=== PATIENT | female | born 1945 | race Caucasian/White ===

== ENCOUNTER 2016-06-21 22:57 | Observation (INO) | payer OTHER, MEDICARE ==
[~2016-06-21] VITALS: Ht 161.3 cm; Wt 84.9 kg
[~2016-06-21 22:57] MED LIST: ACT15 PO; ALBUAER INH; ARM1 PO; Aspirin PO; Enalapril PO; IRON1CAP; Januvia PO; MONT1TAB3 PO; Multivitamin PO; Omega-3 PO; PLQ200 PEG; Pravastatin PO; Prednisone PO; SALI1SPR3; Tylenol Arthritis
--- NOTE | 2016-06-21 23:48 | EMERGENCY ROOM VISIT NOTE ---
History Report prepared by López: Arnel Matta Under the Supervision of: Dr. Jael Gagnon M.D. First contact with patient: 23:20 Chief Complaint: SHORTNESS OF BREATH Stated Complaint: POSSIBLE BLOOD CLOT IN LUNG Nursing Triage Summary: Today pt had sharp pain in left scapula and left arm. Pain worse with deep breath. Went to ER in [place]. Concerned of blood clot. Unable to do CT scan due to poor kidney function. Pt also complaining of pain in "right carotid". Sent here for admission with Dr. Caballero. unable to do direct admit. hx of asthma, DM2 History of Present Illness The patient is a 70 year old female who presents to the Emergency Room with complaints of persistent shortness of breath that began a couple days prior to arrival. The patient states that her shortness of breath would commonly resolve with rest. Today the patient's symptoms would not subside. She is also complaining of pain in her scapula that was radiating down her left arm. She is still experiencing intermittent "twinge" of pain in the left side of neck. She developed a cough yesterday. The patient initially went to the [place] emergency department and attempts at transfer were made to Dr Caballero's service. Ambulance transfer was causing significant delay and pt decided to sign out AMA from [facility] and drive to [facility] for inpt evaluation/ VQ study. 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 Review of Systems See HPI for pertinent positives & negatives. A total of 10 systems reviewed and were otherwise negative. Past Medical & Surgical Medical Problems: (1) Shortness of breath Surgical Problems: (1) H/O: hysterectomy Family History Cancer Diabetes mellitus Heart disease Hypertension Social History Smoking Status: Never Smoker Drug Use: none Marital Status: Housing Status: lives with significant other Current/Historical Medications Scheduled Aspirin (Aspirin), 325 MG PO HS Enalapril Maleate (Vasotec), 10 MG PO DAILY Fish Oil ([place]-3), 2,000 MG PO BID Montelukast Sodium (Singulair), 10 MG PO HS Multivitamin (Multivitamin), 1 TAB PO DAILY Pioglitazone (Actos), 15 MG PO DAILY Polysaccharide Iron Complex (Nu-Iron 150), 150 MG PO 5XWK Pravastatin Sodium (Pravastatin Sodium), 40 MG PO HS Prednisone (Prednisone), 4 MG PO DAILY Sitagliptin (Januvia), 50 MG PO DAILY Scheduled PRN Albuterol Hfa (Ventolin Hfa), 2 PUFFS INH Q6H PRN for SOB/Wheezing Allergies Coded Allergies: Ampicillin (Verified Allergy, Unknown, RASH, 06/22/16) Cefaclor (Verified Allergy, Unknown, Rash, 06/22/16) Clindamycin (Verified Allergy, Unknown, RASH, SWELLING, 06/22/16) Diclofenac (Verified Allergy, Unknown, Swelling-face,SOB, Palpitations, flushing, 06/22/16) Penicillin V (Verified Allergy, Unknown, RASH, 06/22/16) Sulfa Antibiotics (Verified Allergy, Unknown, "SUFLA" = RASH, 06/22/16) Codeine (Verified Adverse Reaction, Unknown, palpitations, SWANSON, Flushing, ) Cortisone (Verified Adverse Reaction, Unknown, Palpitations, 06/22/16) Erythromycin (Verified Adverse Reaction, Unknown, N/V, 06/22/16) Ezetimibe (Verified Adverse Reaction, Unknown, SWANSON,Stomach problems, feels weird, 06/22/16) Indomethacin (Verified Adverse Reaction, Unknown, N/V, 06/22/16) Naproxen (Verified Adverse Reaction, Unknown, N/V, 06/22/16) Pitavastatin (Verified Adverse Reaction, Unknown, White mouth, loss of taste, 06/22/16) Simvastatin (Verified Adverse Reaction, Unknown, Joint Pain,hard to ambulate, N/V,dizziness, 06/22/16) Uncoded Allergies: DECONGESTANTS (Allergy, Mild, Palpitations, 03/26/15) Physical Exam Vital Signs Date Time Temp Pulse Resp B/P Pulse Ox O2 Delivery O2 Flow Rate FiO2 06/22/16 01:04 172/73 06/22/16 00:06 81 20 98 Room Air 06/22/16 00:01 141/87 06/21/16 23:57 75 17 98 Room Air 06/21/16 23:35 99 Room Air 06/21/16 23:35 98 06/21/16 23:31 99 Room Air 06/21/16 23:31 124/78 06/21/16 23:07 36.8 95 20 143/49 100 Room Air Physical Exam Vital signs reviewed. General: Chronically ill appearing, in no significant distress. HEENT: No scleral icterus, PERRLA, neck supple. Atraumatic. Cardiovascular: Regular rate and rhythm, no extra sounds. Pulmonary: Clear to auscultation bilaterally, normal work of breathing. Abdomen: Obese, Soft, nontender, nondistended, positive bowel sounds. Extremities: Minimal peripheral edema bilaterally. No rash. Atraumatic. Musculoskeletal: Atraumatic, no peripheral edema. Neurologic: Patient awake alert and oriented x 3, full strength in all 4 extremities. Cranial nerves 2 through 12 grossly intact. Skin: Warm, dry, no rash Medical Decision & Procedures ER Provider Diagnostic Interpretation: X-ray results as stated below per my interpretation and radiologist interpretation. Other radiology results as stated below per my review and radiologist interpretation: US VENOUS BILATERAL LOWER EXTREMITIES: No evidence of deep venous thrombosis. Radiologist: Nona Swan M.D. CHEST X-RAY: Chest x-ray from outside facility reveals minimal inspiratory effort with clear costovertebral angles, no pleural effusion. No consolidation, no failure. Laboratory Results Laboratory results per my review. Medications Administered Medications (Trade) Dose Ordered Sig/Kandi Route Start Time Stop Time Status Last Admin Dose Admin Sodium Chloride (Nss 1000ml) 1,000 ml @ 125 mls/hr Q8H STAT IV 06/22/16 00:32 06/22/16 02:25 DC 06/22/16 01:04 125 MLS/HR ECG Indication: SOB/dyspnea Rate (beats per minute): 85 Rhythm: sinus rhythm Findings: PVC (Frequent), no acute ischemic change, other (Low voltage) ED Course 2338: Past medical records reviewed. The patient was evaluated in room B12. A complete history and physical examination was performed. 0032: Ordered Sodium Chloride 1000 mL @ 125 mL/hr IV. 0112: I discussed the case with Dr. Ada Hudson [facility] Hospitalist, he will evaluate the patient for further treatment. Medical Decision Differential diagnosis: Etiologies such as infections, reactive airway disease, pneumonia, pneumothorax , COPD, CHF, cardiac ischemia, pulmonary embolism, musculoskeletal, gastrointestinal, as well as others were entertained. This pt was evaluated and appeared to be anxious but in no distress. IV access was obtained and lab work was drawn. VSS. EKG reviewed and is nonischemic. Records from OSH were reviewed. Pt creatinine is 2.2. Ddimer is elevated, cardiac enzymes are normal. LE dopplers are negative for DVT. Pt was d/w Dr Caballero who has agreed to evaluate pt for further management. Consults Time Called: 011 Consulting Physician: Dr. Ada HANCOCK Hospitalist Returned Call: 011 I discussed the case with Dr. Ada HANCOCK Hospitalist, he will evaluate the patient for further treatment. Impression Primary Impression: Shortness of breath Additional Impressions: Elevated d-dimer Chronic renal failure Scribe Attestation The scribe's documentation has been prepared under my direction and personally reviewed by me in its entirety. I confirm that the note above accurately reflects all work, treatment, procedures, and medical decision making performed by me. Departure Information Dispostion Being Evaluated By Hospitalist Referrals Matt Sanchez D.O. (PCP) Patient Instructions My [facility] Problem Qualifiers Additional Impressions: Chronic renal failure Chronic kidney disease stage: unspecified stage Qualified Codes: N18.9 - Chronic kidney disease, unspecified
[2016-06-22] VITALS (10 sets, daily range): BP systolic 124–168; BP diastolic 57–85; PULSE 88–106; TEMP 36.5–36.8; O2SAT 94–97; Ht 161.3 cm; Wt 84.9 kg
[2016-06-22 00:24] LABS: BLOOD UREA NITROGEN 41 mg/dl (7-18); BUN/CREATININE RATIO 18.8 (10-20); CALCIUM 9.5 mg/dl (8.5-10.1); CARBON DIOXIDE 26 mmol/L (21-32); CHLORIDE 110 mmol/L (98-107); GLUCOSE 118 mg/dl (70-99); SODIUM 145 mmol/L (136-145)
[2016-06-22] MEDS ORDERED: SODIUM CHLORIDE 0.9% 1000ML 1,000 ML IV STA (00:32)
[2016-06-22] MEDS ORDERED: ENAL10TA PO (00:36)
[2016-06-22] MEDS ORDERED: ASPI325T45 PO (00:36)
[2016-06-22] MEDS ORDERED: PRAV40TA2 PO (00:36)
[2016-06-22] MEDS ORDERED: PRD/1 PO (00:38)
[2016-06-22] MEDS ORDERED: MULT-506 PO (00:38)
[2016-06-22] MEDS ORDERED: OMEG10007 PO (00:38)
[2016-06-22] MEDS ORDERED: SITA50TA3 PO (00:38)
[2016-06-22] MEDS ORDERED: POLY150C PO (00:40)
[2016-06-22] MEDS ORDERED: VNTHFA/IN INH (00:41)
[2016-06-22] MEDS ORDERED: ALBUTEROL HFA 8 GM INHALER INH PRN (01:30)
[2016-06-22] MEDS ORDERED: ONDANSETRON INJ 2 MG/ML 2 ML VIAL IV PRN (01:30)
[2016-06-22] MEDS ORDERED: ZOLPIDEM TARTRATE 5 MG TAB PO PRN (01:30)
[2016-06-22] MEDS ORDERED: ACETAMINOPHEN 325 MG TAB PO PRN (01:30)
[2016-06-22] MEDS ORDERED: POLYETHYLENE (MIRALAX) 17 GM PACK PO PRN (01:30)
[2016-06-22] MEDS ORDERED: MAGNESIUM HYDROXIDE SUSP 30 ML UDC PO PRN (01:30)
[2016-06-22] MEDS ORDERED: NITROGLYCERIN 0.4 MG SL PER TAB CHARGE SL PRN (01:30)
[2016-06-22] MEDS ORDERED: ALUMINUM/MAGNESIUM/SIMETH (MAALOX MAX) 30 ML UDC PO PRN (01:30)
[2016-06-22] MEDS ORDERED: LORAZEPAM 1 MG TAB PO STA (01:31)
--- NOTE | 2016-06-22 01:31 | History and Physical ---
History & Physical Date & Time of Service: Jun 22, 2016 at 01:28 Chief Complaint: Possible Blood Clot In Lung Primary Care Physician: Matt Sanchez D.O. History of Present Illness Source: patient, spouse This is a 70 yo F with PMR, Anxiety, Asthma & T2DM who presents with shortness of breath over the last 1 month, which has worsened over the last two days. She reports it started a month ago after she had a cold, and she saw her PCP who prescribed a Breo inhaler which helped her symptoms intermittently. She noticed she was getting more short of breath going up the stairs, then got an Albuterol inhaler with also somewhat helped. Over the last two days, she has noticed she is short of breath at rest or when speaking. At 3pm yesterday (06/21/16) she noticed she had pain in her right scapula, which then moved to her left anterior chest and down her left arm. She reported this was associated with shortness of breath and went away on its own. She thought she was having an ID and went to [facility]. In [place], she had a negative troponin but a D- Dimer of 800. They do not have capabilities to do a V/Q scan, so she was going to be transferred here, but no ambulances were available, so her drove her here herself. She currently feels very anxious about her situation and is concerned she may have a blood clot in her lungs. Past Medical/Surgical History PMHx/PSHx: Elevated Creatinine (baseline around 2.0, has had an elevation for 5 years) Polymyalgia Rheumatica Type 2 DM Lumbar disc herniation with surgery Anxiety HTN Family History No pertinent FHx Social History Smoking Status: Never Smoker Marital Status: Housing status: lives with family Immunizations History of Influenza Vaccine: Yes Influenza Vaccine Date: Jan 10, 2015 History of Tetanus Vaccine?: Unknown History of Pneumococcal: Unknown History of Hepatitis B Vaccine: Unknown Allergies Coded Allergies: Ampicillin (Verified Allergy, Unknown, RASH, 06/22/16) Cefaclor (Verified Allergy, Unknown, Rash, 06/22/16) Clindamycin (Verified Allergy, Unknown, RASH, SWELLING, 06/22/16) Diclofenac (Verified Allergy, Unknown, Swelling-face,SOB, Palpitations, flushing, 06/22/16) Penicillin V (Verified Allergy, Unknown, RASH, 06/22/16) Sulfa Antibiotics (Verified Allergy, Unknown, "SUFLA" = RASH, 06/22/16) Codeine (Verified Adverse Reaction, Unknown, palpitations, SWANSON, Flushing, ) Cortisone (Verified Adverse Reaction, Unknown, Palpitations, 06/22/16) Erythromycin (Verified Adverse Reaction, Unknown, N/V, 06/22/16) Ezetimibe (Verified Adverse Reaction, Unknown, SWANSON,Stomach problems, feels weird, 06/22/16) Indomethacin (Verified Adverse Reaction, Unknown, N/V, 06/22/16) Naproxen (Verified Adverse Reaction, Unknown, N/V, 06/22/16) Pitavastatin (Verified Adverse Reaction, Unknown, White mouth, loss of taste, 06/22/16) Simvastatin (Verified Adverse Reaction, Unknown, Joint Pain,hard to ambulate, N/V,dizziness, 06/22/16) Uncoded Allergies: DECONGESTANTS (Allergy, Mild, Palpitations, 03/26/15) Home Medications Scheduled Aspirin (Aspirin), 325 MG PO HS Enalapril Maleate (Vasotec), 10 MG PO DAILY Fish Oil ([place]-3), 2,000 MG PO BID Montelukast Sodium (Singulair), 10 MG PO HS Multivitamin (Multivitamin), 1 TAB PO DAILY Pioglitazone (Actos), 15 MG PO DAILY Polysaccharide Iron Complex (Nu-Iron 150), 150 MG PO 5XWK Pravastatin Sodium (Pravastatin Sodium), 40 MG PO HS Prednisone (Prednisone), 4 MG PO DAILY Sitagliptin (Januvia), 50 MG PO DAILY Scheduled PRN Albuterol Hfa (Ventolin Hfa), 2 PUFFS INH Q6H PRN for SOB/Wheezing Review of Systems See HPI for pertinent positives & negatives. A total of 10 systems reviewed and were otherwise negative. Physical Exam Vital Signs Date Time Temp Pulse Resp B/P Pulse Ox O2 Delivery O2 Flow Rate FiO2 06/22/16 01:04 172/73 06/22/16 00:06 81 20 98 Room Air 06/22/16 00:01 141/87 06/21/16 23:57 75 17 98 Room Air 06/21/16 23:35 99 Room Air 06/21/16 23:35 98 06/21/16 23:31 99 Room Air 06/21/16 23:31 124/78 06/21/16 23:07 36.8 95 20 143/49 100 Room Air General Appearance: WD/WN, + pertinent finding (anxious) Head: normocephalic, atraumatic Eyes: normal inspection ENT: hearing grossly normal Neck: supple, no JVD Respiratory/Chest: lungs clear, normal breath sounds, no respiratory distress Cardiovascular: normal peripheral pulses, + tachycardia, + systolic murmur Abdomen/GI: normal bowel sounds, non tender, soft Back: no CVA tenderness, no muscle spasm, normal range of motion Extremities/Musculoskelatal: no calf tenderness, no pedal edema Neurologic/Psych: alert, normal reflexes, + pertinent finding (anxious affect) Skin: no rash Diagnostics Laboratory Results Results Past 24 Hours Test 06/21/16 23:45 Range/Units Sodium Level 145 136-145 mmol/L Potassium Level 3.5-5.1 mmol/L Chloride Level 110 98-107 mmol/L Carbon Dioxide Level 26 21-32 mmol/L Anion Gap 9.0 3-11 mmol/L Blood Urea Nitrogen 41 7-18 mg/dl Creatinine 2.20 0.60-1.20 mg/dl Est Creatinine Clear Calc Drug Dose 24.9 ml/min Estimated GFR () 25.8 Estimated GFR (Non- 22.3 BUN/Creatinine Ratio 18.8 10-20 Random Glucose 118 70-99 mg/dl Calcium Level 9.5 8.5-10.1 mg/dl Troponin I < 0.015 0-0.045 ng/ml Diagnostic Radiology Venous doppler: Pending EKG 85bpm Sinus rhythm with frequent Premature ventricular complexes Low voltage QRS Borderline ECG No previous ECGs available Impression Assessment and Plan 70 yo overweight female who presents with shortness of breath at rest with brief episode of chest pain earlier today. Shortness of breath - differential: PE, asthma exacerbation, anxiety, pneumonia , aortic dissection - V/Q Scan - Continuous pulse ox (has been 96%+ since being in ED) Chest pain - Trend cardiac enzymes - EKG in AM - Telemetry monitoring Elevated Creatinine, baseline 2.0-2.2 - Continue to monitor - Obtain old records from [facility] Polymyalgia Rheumatica - Continue prednisone 4mg daily Anxiety - 1mg Ativan now, then continue to monitor Hypertension - BP on arrival was around 120/80, then has steadily risen since being in ED. May be due to anxiety but continue to monitor. Resident Physician Supervision Note: Pt seen/examined independently. I discussed the case with the resident and agree with the findings and plan as documented in the note. Any exceptions or clarifications are listed here: Initially accepted from [place] as direct - transport was unavailable so that pt was brought to our ER by . Transfer was to take place as there is suspicion of PE and no VQ capability at [place] - CTA cannot be done due to renal function CC is SOB On monitor in ER occasional PVCs seen & pt is intermittently hypertensive and anxious - states he SOB is most pronounced w/exertion - she had some L sided pleauritic CP earlier in day which resolved D dimer is elevated however this is in the context of CKD O/E AAO x 3 CTAB S1,2 R NT,NT P: R/O PE - AM VQ Would proceed to noncontrast CT if negative to further evaluate her SOB Renal function is stable Documented By: Maulik Caballero Level of Care Telemetry Resuscitation Status FULL RESUSCITATION VTE Prophylaxis VTE Risk Assessment Done? Y/N: Yes Risk Level: Moderate Given or contraindicated: Unfractionated heparin SQ Resident Tracking Resident Involvement: Resident Care Provided Care Provided: Adult Hospital Medicine
[2016-06-22] MEDS ORDERED: IV FLUIDS COMPLETED PRN (01:45)
[2016-06-22] MEDS: NITROGLYCERIN OINT 2% 1GM PACKET EXT SCH ×5 (03:23→20:01)
[2016-06-22 06:10] LABS: BASO % 1.4 %; COMPLETE YES; EOS % 2.3 %; IG% 0.5 %; LYMPH % 28.9 %; LYMPH ABS # 2.14 K/uL (1.2-3.4); MEAN CELL VOLUME 95.5 fL (80-100); MEAN CORPUSCULAR HEMOGLOBIN 31.6 pg (25-34); MEAN CORPUSCULAR HGB CONC 33.1 g/dl (32-36); MEAN PLATELET VOLUME 10.3 fL (7.4-10.4); MONO % 9.1 %; NEUT % 57.8 %; PLATELET COUNT 242 K/uL (130-400); RED BLOOD COUNT 3.35 M/uL (4.2-5.4)
[2016-06-22 06:29] LABS: PARTIAL THROMBOPLASTIN RATIO 1.1; PROTHROMBIN TIME (PATIENT) 10.8 SECONDS (9.0-12.0)
--- NOTE | 2016-06-22 06:29 | DIAGNOSTIC IMAGING REPORT ---
BILATERAL LOWER EXTREMITY VENOUS DOPPLER HISTORY: Pain. Edema. DVT, elevated ddi wanda COMPARISON STUDY: None. FINDINGS: There is normal compressibility, flow, and augmentation within the bilateral lower extremity deep venous systems. IMPRESSION: No DVT within the right or left lower extremity. Electronically signed by: Mendez Reed M.D. 06/22/2016 6:28 AM Dictated Date/Time: 06/22/2016 6:27 AM
[2016-06-22 06:46] LABS: ALB/GLOB RATIO 0.9 (0.9-2); ALT/SGPT 27 U/L (12-78); AST/SGOT 19 U/L (15-37); BLOOD UREA NITROGEN 39 mg/dl (7-18); BUN/CREATININE RATIO 19.7 (10-20); CARBON DIOXIDE 25 mmol/L (21-32); CHLORIDE 110 mmol/L (98-107); GLUCOSE 100 mg/dl (70-99); POTASSIUM 4.5 mmol/L (3.5-5.1); SODIUM 144 mmol/L (136-145)
[2016-06-22 06:51] LABS: ALKALINE PHOSPHATASE 45 U/L (45-117); CKMB/CK RATIO 0.8 (0-3.0)
--- NOTE | 2016-06-22 08:16 | Family Medicine Progress Note ---
Progress Note Date of Service Jun 22, 2016. Subjective Pt evaluation today including: conversation w/ patient, conversation w/ family , physical exam, chart review, lab review, review of studies, review of inpatient medication list Pain: denies pain PO Intake: NPO Voiding: no voiding problems Patient report resolution of SOB at rest. Rt Scapular pain has resolved. Patient also reports "funny feeling in chest" that has coincided with onset of current symptoms . Discomfort worse with inspiration. +palpitation. Constitutional: No chills, No fever, No weakness Respiratory: + dyspnea on exertion, No cough, No shortness of breath, No wheezing Cardiovascular: No chest pain, No edema, No palpitations Abdomen: No constipation, No diarrhea, No nausea, No pain, No vomiting Female : No dysuria, No hematuria, No urinary frequency Neurologic: No numbness/tingling, No weakness Skin: No itch, No rash Medications Current Inpatient Medications Medications (Trade) Dose Ordered Sig/Kandi Route Start Time Stop Time Status Last Admin Dose Admin Heparin Sodium (Porcine) (Heparin Sq 5000 Unit/0.5ml) 5,000 unit Q12 SQ 06/22/16 09:00 07/22/16 08:59 Acetaminophen (Tylenol Tab) 650 mg Q4H PRN PO 06/22/16 01:30 07/22/16 01:29 Al Hydrox/Mg Hydrox/Simethicone (Maalox Max Susp) 15 ml Q4H PRN PO 06/22/16 01:30 07/22/16 01:29 Magnesium Hydroxide (Milk Of Magnesia Susp) 30 ml Q12H PRN PO 06/22/16 01:30 07/22/16 01:29 Zolpidem Tartrate (Ambien Tab) 5 mg HSZ PRN PO 06/22/16 01:30 07/22/16 01:29 Ondansetron HCl (Zofran Inj) 4 mg Q6H PRN IV 06/22/16 01:30 07/22/16 01:29 Nitroglycerin (Nitrostat Tab) 0.4 mg UD PRN SL 06/22/16 01:30 07/22/16 01:29 Nitroglycerin (Nitroglycerin 2% Oint) 1 inch Q6H EXT 06/22/16 03:00 07/22/16 01:29 06/22/16 04:00 1 INCH Polyethylene (Miralax Powder Packet) 17 gm DAILY PRN PO 06/22/16 01:30 07/22/16 01:29 Albuterol (Ventolin Hfa Inhaler) 2 puffs Q6H PRN INH 06/22/16 01:30 07/22/16 01:29 Aspirin (Ecotrin Tab) 325 mg HS PO 06/22/16 21:00 07/22/16 20:59 Enalapril Maleate (Vasotec Tab) 10 mg DAILY PO 06/22/16 09:00 07/22/16 08:59 Fish Oil ([place]-3 (Purified Fish Oil) Cap) 2 gm BID PO 06/22/16 09:00 07/22/16 08:59 Montelukast Sodium (Singulair Tab) 10 mg HS PO 06/22/16 21:00 07/22/16 20:59 Multivitamins (Multivitamin Tab) 1 tab DAILY PO 06/22/16 09:00 07/22/16 08:59 Pioglitazone HCl (ACTos TAB) 15 mg DAILY PO 06/22/16 09:00 07/22/16 08:59 Pravastatin Sodium (Pravachol Tab) 40 mg HS PO 06/22/16 21:00 07/22/16 20:59 Prednisone (PredniSONE TAB) 4 mg DAILY PO 06/22/16 09:00 07/22/16 08:59 Sitagliptin Phosphate (Januvia Tab) 50 mg DAILY PO 06/22/16 09:00 07/22/16 08:59 Miscellaneous (Iv Fluids Completed) 1 ea PRN PRN N/A 06/22/16 01:45 06/22/17 01:44 Objective Vital Signs Date Time Temp Pulse Resp B/P Pulse Ox O2 Delivery O2 Flow Rate FiO2 06/22/16 12:55 36.6 97 18 142/85 96 Room Air 06/22/16 12:00 97 Room Air 06/22/16 08:00 96 Room Air 06/22/16 07:46 36.6 106 18 124/60 96 Room Air 06/22/16 04:18 36.8 88 96 133/57 96 Room Air 06/22/16 04:00 Room Air 06/22/16 02:13 36.5 98 20 168/84 97 Room Air 06/22/16 01:42 96 16 152/85 99 06/22/16 01:04 172/73 06/22/16 00:06 81 20 98 Room Air 06/22/16 00:01 141/87 06/21/16 23:57 75 17 98 Room Air 06/21/16 23:35 99 Room Air 06/21/16 23:35 98 06/21/16 23:31 99 Room Air 06/21/16 23:31 124/78 06/21/16 23:07 36.8 95 20 143/49 100 Room Air Physical Exam General Appearance: WD/WN, no apparent distress Eyes: PERRL, EOMI, sclerae normal Neck: supple, no carotid bruits, trachea midline Respiratory/Chest: lungs clear, normal breath sounds, no respiratory distress Cardiovascular: regular rate, rhythm, no edema, + systolic murmur (with radiation to carotids) Abdomen: normal bowel sounds, non tender, soft, no organomegaly Extremities: no pedal edema, no calf tenderness Skin: normal color, warm/dry, no rash Laboratory Results Results Past 24 Hours Test 06/21/16 23:45 06/22/16 05:58 06/22/16 11:50 06/22/16 12:28 Range/Units Sodium Level 145 144 136-145 mmol/L Potassium Level 4.5 3.5-5.1 mmol/L Chloride Level 110 110 98-107 mmol/L Carbon Dioxide Level 26 25 21-32 mmol/L Anion Gap 9.0 9.0 3-11 mmol/L Blood Urea Nitrogen 41 39 7-18 mg/dl Creatinine 2.20 2.00 0.60-1.20 mg/dl Est Creatinine Clear Calc Drug Dose 24.9 27.8 ml/min Estimated GFR () 25.8 29.0 Estimated GFR (Non- 22.3 25.0 BUN/Creatinine Ratio 18.8 19.7 10-20 Random Glucose 118 100 70-99 mg/dl Calcium Level 9.5 9.0 8.5-10.1 mg/dl Troponin I < 0.015 < 0.015 < 0.015 0-0.045 ng/ml White Blood Count 7.40 4.8-10.8 K/uL Red Blood Count 3.35 4.2-5.4 M/uL Hemoglobin 10.6 12.0-16.0 g/dL Hematocrit 32.0 37-47 % Mean Corpuscular Volume 95.5 80-100 fL Mean Corpuscular Hemoglobin 31.6 25-34 pg Mean Corpuscular Hemoglobin Concent 33.1 32-36 g/dl Platelet Count 242 130-400 K/uL Mean Platelet Volume 10.3 7.4-10.4 fL Neutrophils (%) (Auto) 57.8 % Lymphocytes (%) (Auto) 28.9 % Monocytes (%) (Auto) 9.1 % Eosinophils (%) (Auto) 2.3 % Basophils (%) (Auto) 1.4 % Neutrophils # (Auto) 4.28 1.4-6.5 K/uL Lymphocytes # (Auto) 2.14 1.2-3.4 K/uL Monocytes # (Auto) 0.67 0.11-0.59 K/uL Eosinophils # (Auto) 0.17 0-0.5 K/uL Basophils # (Auto) 0.10 0-0.2 K/uL RDW Standard Deviation 46.2 36.4-46.3 fL RDW Coefficient of Variation 13.3 11.5-14.5 % Immature Granulocyte % (Auto) 0.5 % Immature Granulocyte # (Auto) 0.04 0.00-0.02 K/uL Prothrombin Time 10.8 9.0-12.0 SECONDS Prothromb Time International Ratio 1.0 0.9-1.1 Activated Partial Thromboplast Time 27.8 21.0-31.0 SECONDS Partial Thromboplastin Ratio 1.1 Total Bilirubin 0.3 0.2-1 mg/dl Aspartate Amino Transf (AST/SGOT) 19 15-37 U/L Alanine Aminotransferase (ALT/SGPT) 27 12-78 U/L Alkaline Phosphatase 45 45-117 U/L Total Creatine Kinase 76 71 26-192 U/L Creatine Kinase MB 0.6 0.6 0.5-3.6 ng/ml Creatine Kinase MB Ratio 0.8 0.8 0-3.0 Total Protein 6.5 6.4-8.2 gm/dl Albumin 3.0 3.4-5.0 gm/dl Globulin 3.5 2.5-4.0 gm/dl Albumin/Globulin Ratio 0.9 0.9-2 Hepatitis C Antibody Screen NEG NEG Bedside Glucose 113 70-90 mg/dl Test 06/22/16 16:19 Range/Units Bedside Glucose 118 70-90 mg/dl Assessment and Plan 70 yo F non-smoker with Hx of Anxiety, PMR on chronic prednisone, PMR, CKD, Asthma, T2DM p/w SOBx 1month with worsening with a few days with associated pleuritic Chest Discomfort, palpitation, with an elevated D-Dimer from another facility,found to have negative GRAEME LE doppller u/s for DVT , negative cardiac enzymes. SOB -improved, saturation 96% on rm air -Anxiety Vs. PE(Hx of thrombosis +D-Dimer, but negative doppler) vs. Pulmonary HTN (SOB x 1 month), vs. Valvular disease( +systolic murmur, but not new onset) -F/U VQ Scan results -Consider Echo if VQ Scan negative to r/o Pulmonary HTN, evaluate valvular fxn Acute on CKD -Baseline 1.8-1.9 per patient - 2.2 Cr on arrival -Cr improved to 2 s/p IL IV fluids -BUN/Cr ratio 19.7, -started additional bag of IV fluids -Reassess PRP in AM PMR -joint ache (Shoulders) at baseline - Continue Prednisone daily Systolic Murmur -known to patient -patient uncertain of diagnosis -F/u Echo HTN -controlled -Continue Enalapril DVT Prophylaxis -Heparin 5000 q12 Start Diet Discharge planning: home Resident Tracking Resident Involvement: Resident Care Provided Care Provided: Adult Hospital Medicine Reviewed: Pt Seen/Exam by Me History Pt still SOB with exertion. No chest pain. States that this has been ongoing since about a month ago when she had "that flu that went around". Has tried inhalers given her asthma hx and no improvement. Agree with HPI/ROS as noted. General Appearance: no apparent distress, obese Respiratory: normal breath sounds, no respiratory distress Cardiovascular: normal peripheral pulses, regular rate, rhythm Gastrointestinal: non tender, soft Extremities: non-tender, no pedal edema Neurologic/Psychiatric: alert, normal mood/affect Skin Characteristics: normal color, warm/dry Assessment/Plan Resident Physician Supervision Note: I discussed the case with the resident and agree with the findings and plan as documented in the note. Any exceptions or clarifications are listed here: Documented By: Yvonne Beckham SOB that has been worsening over the last month V/Q scan neg ECHO pending Continue to monitor
[2016-06-22] MEDS: PIOGLITAZONE TAB 15 MG TAB PO SCH (08:48)
[2016-06-22] MEDS: HEPARIN SOD 5000 UNIT/0.5 ML CARP SQ SCH ×2 (08:48→20:03)
[2016-06-22] MEDS: SITAGLIPTIN 25 MG TAB PO SCH (08:49)
[2016-06-22] MEDS: MULTIVITAMIN TAB PO SCH (08:49)
[2016-06-22] MEDS: OMEGA-3 (PURIFIED FISH OIL) 1 GM CAP PO SCH ×2 (08:50→19:59)
[2016-06-22] MEDS: ENALAPRIL MALEATE 10 MG TAB PO SCH (08:52)
--- NOTE | 2016-06-22 10:59 | DIAGNOSTIC IMAGING REPORT ---
NUCLEAR MEDICINE VENTILATION/PERFUSION SCAN CLINICAL HISTORY: Chest pain. Dyspnea. COMPARISON: None TECHNIQUE: For the ventilation portion of this exam, 32.0 mCi of DTPA was inhaled at 9:47 AM. Immediately following inhalation, imaging of the chest was carried out in the anterior, posterior, left lateral, right lateral, LPO, RPO, GERMAN and ESTRADA projections. For the perfusion portion of exam, 5.7 mCi of technetium 99m MAA was injected IV at 10:25 AM. Immediately following injection, imaging of the chest was carried out in the same projections. FINDINGS: Uniform activity characteristics throughout the right as well as left lungs. No significant ventilation/perfusion mismatch. No significant central air trapping IMPRESSION: Normal lung scan Electronically signed by: Mendez Reed M.D. 06/22/2016 10:58 AM Dictated Date/Time: 06/22/2016 10:56 AM
--- NOTE | 2016-06-22 11:00 | DIAGNOSTIC IMAGING REPORT ---
CHEST 2 VIEWS ROUTINE HISTORY: SHORTNESS OF BREATH, FOR V/Q SCAN COMPARISON: None. FINDINGS: Punctate calcified granuloma within the right lower lobe. The lungs are otherwise clear. The heart is normal in size. No pleural effusions. No pneumothorax. IMPRESSION: No acute process. Electronically signed by: Mustapha Sargent M.D. 06/22/2016 10:59 AM Dictated Date/Time: 06/22/2016 10:57 AM
[2016-06-22] MEDS: SODIUM CHLORIDE 0.9% 1000ML 1,000 ML IV SCH ×2 (11:02→17:36)
[2016-06-22 12:17] LABS: CKMB/CK RATIO 0.8 (0-3.0)
--- NOTE | 2016-06-22 14:47 | ECHOCARDIOGRAM REPORT ---
*NOTICE TO RECEIVING REPUBLICAN AGENCY This information is strictly Confidential and protected under [place] law. [place] law prohibits you from making any further disclosure of this information unless further disclosure is expressly permitted by the written consent of the person to whom it pertains or is authorized by law. A general authorization for the release of medical or other information is not sufficient for this purpose. Hospital accepts no responsibility if the information is made available to any other person, INCLUDING THE PATIENT. Interpretation Summary * Name: NOLVIA JOHNSON Study Date: 06/22/2016 12:22 PM BP: 124/60 mmHg * Patient Location: [facility]– [place][note 2] HR: 63 * : 1945 (M/d/yyyy) Gender: Female Height: 63.5 in * Age: 70 yrs Ethnicity: CA Weight: 183 lb * Performed By: Willow Bee RDCS * * Reason For Study: R/O PULM HTN * BSA: 1.9 m2 * History: R/O PULMONARY HTN * Normal biventriuclar systolic function. * Normal chamber dimensions. * No significant valvular abnormalities. * Top normal estimated right ventricular systolic pressure. * Normal estimated central venous pressure. * -- Conclusions -- * Aortic valve sclerosis mild, without significant aortic valvular stenosis. Procedure Details * A complete two-dimensional transthoracic echocardiogram was performed (2D, M-mode, Doppler and color flow Doppler). Left Ventricle * The left ventricle is normal in size. * There is normal left ventricular wall thickness. * Ejection Fraction = 55-60%. * The left ventricular wall motion is normal. Right Ventricle * The right ventricle is normal in size and function. Atria * The left atrial size is normal. * Right atrial size is normal. * No ASD detected; PFO is not assessed. Mitral Valve * The mitral valve is normal. * There is no mitral valve stenosis. * There is no mitral regurgitation noted. Tricuspid Valve * The tricuspid valve is not well visualized, but is grossly normal. * There is trace tricuspid regurgitation. * Right ventricular systolic pressure is normal. Aortic Valve * The aortic valve is trileaflet. * The aortic valve opens well. * Aortic valve sclerosis mild, without significant aortic valvular stenosis. * No aortic regurgitation is present. Pulmonic Valve * The pulmonic valve is not well visualized. * The pulmonary valve is inadequately visualized, but the Doppler data is adequate for interpretation. * There is no pulmonic valvular stenosis. * Trace pulmonic valvular regurgitation. Great Vessels * The aortic root is normal size. * The aortic root and proximal ascending aorta are normal sized. Pericardium/Pleural * There is no pericardial effusion. Great Vessels * Normal inferior vena cava diameter and respiratory variation suggests normal central venous pressure. MMode 2D Measurements and Calculations IVSd 0.96 cm IVSs 1.5 cm LVIDd 4.4 cm LVIDs 3.1 cm LVPWd 1.0 cm LVPWs 1.6 cm IVS/LVPW 0.92 FS 29.4 % EDV(Teich) 86.5 ml ESV(Teich) 37.6 ml EF(Teich) 56.5 % EDV(cubed) 83.7 ml ESV(cubed) 29.5 ml EF(cubed) 64.8 % % IVS thick 50.7 % % LVPW thick 49.4 % LV mass(C)d 146.8 grams LV mass(C)dI 78.4 grams/m\S\2 LV mass(C)s 164.5 grams LV mass(C)sI 87.9 grams/m\S\2 SV(Teich) 48.9 ml SI(Teich) 26.1 ml/m\S\2 SV(cubed) 54.2 ml SI(cubed) 28.9 ml/m\S\2 Ao root diam 2.7 cm Ao root area 5.8 cm\S\2 LA dimension 3.8 cm LA/Ao 1.4 LVAd ap4 27.4 cm\S\2 LVLd ap4 7.8 cm EDV(MOD-sp4) 78.4 ml EDV(sp4-el) 81.5 ml LVAs ap4 14.8 cm\S\2 LVLs ap4 6.2 cm ESV(MOD-sp4) 30.6 ml ESV(sp4-el) 30.0 ml EF(MOD-sp4) 60.9 % EF(sp4-el) 63.3 % LVAd ap2 16.7 cm\S\2 LVLd ap2 6.5 cm EDV(MOD-sp2) 34.5 ml EDV(sp2-el) 36.1 ml LVAs ap2 10.5 cm\S\2 LVLs ap2 6.2 cm ESV(MOD-sp2) 16.2 ml ESV(sp2-el) 15.1 ml EF(MOD-sp2) 53.1 % EF(sp2-el) 58.3 % LVLd %diff -19.56 % EDV(MOD-bp) 56.3 ml LVLs %diff -0.39 % ESV(MOD-bp) 22.1 ml EF(MOD-bp) 60.8 % SV(MOD-sp4) 47.7 ml SI(MOD-sp4) 25.5 ml/m\S\2 SV(MOD-sp2) 18.3 ml SI(MOD-sp2) 9.8 ml/m\S\2 SV(MOD-bp) 34.3 ml SI(MOD-bp) 18.3 ml/m\S\2 SV(sp4-el) 51.6 ml SI(sp4-el) 27.5 ml/m\S\2 SV(sp2-el) 21.1 ml SI(sp2-el) 11.3 ml/m\S\2 Doppler Measurements and Calculations Ao V2 max 169.1 cm/sec Ao max PG 11.4 mmHg Ao max PG (full) 8.4 mmHg LV V1 max PG 3.1 mmHg LV V1 max 87.4 cm/sec TR max jerzy 258.9 cm/sec
[2016-06-22] MEDS ORDERED: ASPIRIN 325 MG ECTAB PO SCH (21:00)
[2016-06-22] MEDS ORDERED: MONTELUKAST SOD 10 MG TAB PO SCH (21:00)
[2016-06-22] MEDS ORDERED: PRAVASTATIN SOD 40 MG TAB PO SCH (21:00)
[2016-06-23] VITALS: BP 133/80; PULSE 96; TEMP 37.2; O2SAT 95
[2016-06-23] MEDS: SODIUM CHLORIDE 0.9% 1000ML 1,000 ML IV SCH ×2 (01:47→09:44)
[2016-06-23] MEDS: NITROGLYCERIN OINT 2% 1GM PACKET EXT SCH ×2 (03:49→09:44)
[2016-06-23 04:05] VITALS: BP 136/63; PULSE 88; TEMP 37.2; O2SAT 96
[2016-06-23 08:04] VITALS: BP 137/72; PULSE 80; TEMP 37; O2SAT 95
[2016-06-23] MEDS: HEPARIN SOD 5000 UNIT/0.5 ML CARP SQ SCH (09:41)
[2016-06-23] MEDS: OMEGA-3 (PURIFIED FISH OIL) 1 GM CAP PO SCH (09:42)
[2016-06-23] MEDS: ENALAPRIL MALEATE 10 MG TAB PO SCH (09:42)
[2016-06-23] MEDS: PIOGLITAZONE TAB 15 MG TAB PO SCH (09:42)
[2016-06-23] MEDS: SITAGLIPTIN 25 MG TAB PO SCH (09:43)
[2016-06-23] MEDS: MULTIVITAMIN TAB PO SCH (09:43)
--- NOTE | 2016-06-23 10:05 | Family Medicine Progress Note ---
Progress Note Date of Service Jun 23, 2016. Subjective Pt evaluation today including: conversation w/ patient, physical exam, chart review, lab review, review of studies, review of inpatient medication list Pain: denies PO Intake: adequate Voiding: no voiding problems No acute events overnight. She continues to report Dyspnea on exertion but none at rest. She reports palpitation. Additional Comments: Constitutional: No chills, No fever, No weakness Respiratory: + dyspnea on exertion, No cough, No shortness of breath, No wheezing Cardiovascular: No chest pain, No edema,+ palpitations Abdomen: No constipation, No diarrhea, No nausea, No pain, No vomiting Female : No dysuria, No hematuria, No urinary frequency Neurologic: No numbness/tingling, No weakness Skin: No itch, No rash Medications Current Inpatient Medications Medications (Trade) Dose Ordered Sig/Kandi Route Start Time Stop Time Status Last Admin Dose Admin Heparin Sodium (Porcine) (Heparin Sq 5000 Unit/0.5ml) 5,000 unit Q12 SQ 06/22/16 09:00 07/22/16 08:59 06/23/16 09:41 5,000 UNIT Acetaminophen (Tylenol Tab) 650 mg Q4H PRN PO 06/22/16 01:30 07/22/16 01:29 Al Hydrox/Mg Hydrox/Simethicone (Maalox Max Susp) 15 ml Q4H PRN PO 06/22/16 01:30 07/22/16 01:29 Magnesium Hydroxide (Milk Of Magnesia Susp) 30 ml Q12H PRN PO 06/22/16 01:30 07/22/16 01:29 Zolpidem Tartrate (Ambien Tab) 5 mg HSZ PRN PO 06/22/16 01:30 07/22/16 01:29 Ondansetron HCl (Zofran Inj) 4 mg Q6H PRN IV 06/22/16 01:30 07/22/16 01:29 Nitroglycerin (Nitrostat Tab) 0.4 mg UD PRN SL 06/22/16 01:30 07/22/16 01:29 Nitroglycerin (Nitroglycerin 2% Oint) 1 inch Q6H EXT 06/22/16 03:00 07/22/16 01:29 06/23/16 09:44 1 INCH Polyethylene (Miralax Powder Packet) 17 gm DAILY PRN PO 06/22/16 01:30 07/22/16 01:29 Albuterol (Ventolin Hfa Inhaler) 2 puffs Q6H PRN INH 06/22/16 01:30 07/22/16 01:29 Aspirin (Ecotrin Tab) 325 mg HS PO 06/22/16 21:00 07/22/16 20:59 06/22/16 19:59 325 MG Enalapril Maleate (Vasotec Tab) 10 mg DAILY PO 06/22/16 09:00 07/22/16 08:59 06/23/16 09:42 10 MG Fish Oil ([place]-3 (Purified Fish Oil) Cap) 2 gm BID PO 06/22/16 09:00 07/22/16 08:59 06/23/16 09:42 2 GM Montelukast Sodium (Singulair Tab) 10 mg HS PO 06/22/16 21:00 07/22/16 20:59 06/22/16 20:00 10 MG Multivitamins (Multivitamin Tab) 1 tab DAILY PO 06/22/16 09:00 07/22/16 08:59 06/23/16 09:43 1 TAB Pioglitazone HCl (ACTos TAB) 15 mg DAILY PO 06/22/16 09:00 07/22/16 08:59 06/23/16 09:42 15 MG Pravastatin Sodium (Pravachol Tab) 40 mg HS PO 06/22/16 21:00 07/22/16 20:59 06/22/16 20:00 40 MG Prednisone (PredniSONE TAB) 4 mg DAILY PO 06/22/16 09:00 07/22/16 08:59 06/23/16 09:43 4 MG Sitagliptin Phosphate (Januvia Tab) 50 mg DAILY PO 06/22/16 09:00 07/22/16 08:59 06/23/16 09:43 50 MG Miscellaneous 1 ea 1 ea PRN PRN N/A 06/22/16 01:45 06/22/17 01:44 Sodium Chloride (Nss 1000ml) 1,000 ml @ 125 mls/hr Q8H IV 06/22/16 09:45 07/22/16 09:44 06/23/16 09:44 125 MLS/HR Objective Vital Signs Date Time Temp Pulse Resp B/P Pulse Ox O2 Delivery O2 Flow Rate FiO2 06/23/16 08:04 37.0 80 16 137/72 95 Room Air 06/23/16 08:00 Room Air 06/23/16 04:05 37.2 88 17 136/63 96 06/23/16 04:00 Room Air 06/23/16 00:00 37.2 96 17 133/80 95 06/22/16 23:59 94 Room Air 06/22/16 20:00 94 Room Air 06/22/16 19:25 36.7 95 19 125/65 94 Room Air 06/22/16 16:00 95 Room Air 06/22/16 12:55 36.6 97 18 142/85 96 Room Air 06/22/16 12:00 97 Room Air Physical Exam Notes: General Appearance: WD/WN, no apparent distress Eyes: PERRL, EOMI, sclerae normal Neck: supple, no carotid bruits, trachea midline Respiratory/Chest: lungs clear, normal breath sounds, no respiratory distress Cardiovascular: regular rate, rhythm, no edema, + systolic murmur (with radiation to carotids) Abdomen: normal bowel sounds, non tender, soft, no organomegaly Extremities: no pedal edema, no calf tenderness Skin: normal color, warm/dry, no rash Laboratory Results Results Past 24 Hours Test 06/22/16 11:50 06/22/16 12:28 06/22/16 16:19 06/22/16 17:50 Range/Units Total Creatine Kinase 71 78 26-192 U/L Creatine Kinase MB 0.6 < 0.5 0.5-3.6 ng/ml Creatine Kinase MB Ratio 0.8 0-3.0 Troponin I < 0.015 < 0.015 0-0.045 ng/ml Bedside Glucose 113 118 70-90 mg/dl Test 06/22/16 21:24 06/23/16 06:59 Range/Units Bedside Glucose 111 85 70-90 mg/dl Assessment and Plan 70 yo F non-smoker with Hx of Anxiety, PMR on chronic prednisone, PMR, CKD, Asthma, T2DM p/w SOBx 1month with worsening with a few days with associated pleuritic Chest Discomfort, palpitation, with an elevated D-Dimer from another facility,found to have negative GRAEME LE doppler u/s for DVT , negative cardiac enzymes, cxr showing granuloma but no acute process SOB -improved, saturation 96% on rm air -Anxiety Vs. -VQ Scan negative -Echo: mild Aortic sclerosis, no evidence of Pulmonary HTN -Troponin still negative -Ruled out PE, Pneumonia, [place], Pulm HTN, -CXR:Punctate calcified granuloma within the right lower lobe -Consider Sarcoid, Histoplasmosis -CT Chest for further evaluation Acute on CKD -Baseline 1.8-1.9 per patient - 2.2 Cr on arrival -Cr improved to 2.0 -Reassess PRP in AM PMR -joint ache (Shoulders) at baseline - Continue Prednisone daily Systolic Murmur -known to patient -patient uncertain of diagnosis -Echo confirms mild Aortic Sclerosis HTN -controlled -Continue Enalapril DVT Prophylaxis -Heparin 5000 q12 Resident Tracking Resident Involvement: Resident Care Provided Care Provided: Adult Hospital Medicine Reviewed: Pt Seen/Exam by Me History See d/c summary for details. Assessment/Plan Resident Physician Supervision Note: I discussed the case with the resident and agree with the findings and plan as documented in the note. Any exceptions or clarifications are listed here: Documented By: Yvonne Beckham SOB that has been worsening over the last month V/Q scan neg ECHO pending Continue to monitor
--- NOTE | 2016-06-23 11:29 | DIAGNOSTIC IMAGING REPORT ---
CHEST CT WITHOUT CONTRAST CT DOSE: 479.33 mGy.cm HISTORY: Short of breath. Left-sided chest pain. TECHNIQUE: Multiaxial CT images of the chest were performed without contrast. COMPARISON: Chest 06/22/2016. FINDINGS: No pleural effusions. No pneumothorax. The central airways are patent. No focal lung consolidations to suggest pneumonia. Patchy ground glass densities at the lung bases favor mild dependent change. Mild fibrotic change seen within the periphery of the right middle lobe. This is likely chronic. No suspicious lytic or blastic osseous lesions. Dense calcification within the right breast may be due to old postoperative change. Left thyroid nodules with the largest measuring 1 cm. No mediastinal or hilar lymphadenopathy. Normal caliber thoracic aorta. Moderate cortical renal thinning. Mild hepatic steatosis. The visualized adrenal glands and spleen are unremarkable. IMPRESSION: 1. No acute process within the chest. 2. No fractures within the visualized osseous structures. 3. Left thyroid nodules. The largest measures 1 cm. Electronically signed by: Mustapha Sargent M.D. 06/23/2016 11:28 AM Dictated Date/Time: 06/23/2016 11:20 AM
[2016-06-23 11:41] VITALS: BP 152/70; PULSE 88; TEMP 36.8; O2SAT 99
[2016-06-23 12:58] LABS: HEMATOCRIT 30.6 % (37-47); MEAN CORPUSCULAR HEMOGLOBIN 31.4 pg (25-34); MEAN PLATELET VOLUME 9.8 fL (7.4-10.4); PLATELET COUNT 229 K/uL (130-400); RED BLOOD COUNT 3.22 M/uL (4.2-5.4); WHITE BLOOD COUNT 7.52 K/uL (4.8-10.8)
--- NOTE | 2016-06-23 13:47 | Discharge Instructions ---
Discharge Instructions Date of Service Jun 23, 2016. Admission Reason for Admission: Shortness Of Breath Discharge Discharge Diagnosis / Problem: Shortness of breath Discharge Goals Goal(s): Decrease discomfort, Improve function, Increase independence Activity Recommendations Activity Limitations: resume your previous activity . Instructions / Follow-Up Instructions / Follow-Up Pulmonology as arranged prior to discharge PCP in 1-2 weeks Current Hospital Diet Patient's current hospital diet: Diabetes Type 2 Diet Discharge Diet Recommended Diet: Diabetes Type 2 Diet Pending Studies Studies pending at discharge: yes List of pending studies: Serum SELENA Histoplasmosis Ag Legionella Medical Emergencies . Who to Call and When: Medical Emergencies: If at any time you feel your situation is an emergency, please call 911 immediately. . Non-Emergent Contact Non-Emergency issues call your: Primary Care Provider . . "Provider Documentation" section prepared by Yvonne Beckham. VTE Core Measure Inpt VTE Proph given/why not?: Unfractionated heparin SQ
[2016-06-23 14:31] VITALS: BP 152/70; PULSE 88; TEMP 36.8; O2SAT 99
--- NOTE | 2016-06-23 20:14 | Discharge Summary ---
Discharge Summary Date of Service Jun 23, 2016. (Lance Kiser MD) Discharge Summary Admission Date: Jun 22, 2016 at 01:27 Discharge Date: Jun 23, 2016 Discharge Disposition: Home Principal Diagnosis: Dyspnea Immunizations: Have You Had Influenza Vaccine: Yes Influenza Vaccine Date: Jan 10, 2015 History of Tetanus Vaccine?: Unknown History of Pneumococcal: Unknown History of Hepatitis B Vaccine: Unknown Procedures: BILATERAL LOWER EXTREMITY VENOUS DOPPLER HISTORY: Pain. Edema. DVT, elevated ddi wanda COMPARISON STUDY: None. FINDINGS: There is normal compressibility, flow, and augmentation within the bilateral lower extremity deep venous systems. IMPRESSION: No DVT within the right or left lower extremity. [~ rep ct add3]] NUCLEAR MEDICINE VENTILATION/PERFUSION SCAN CLINICAL HISTORY: Chest pain. Dyspnea. COMPARISON: None TECHNIQUE: For the ventilation portion of this exam, 32.0 mCi of DTPA was inhaled at 9:47 AM. Immediately following inhalation, imaging of the chest was carried out in the anterior, posterior, left lateral, right lateral, LPO, RPO, TURKISH and ESTRADA projections. For the perfusion portion of exam, 5.7 mCi of technetium 99m MAA was injected IV at 10:25 AM. Immediately following injection, imaging of the chest was carried out in the same projections. FINDINGS: Uniform activity characteristics throughout the right as well as left lungs. No significant ventilation/perfusion mismatch. No significant central air trapping IMPRESSION: Normal lung scan [~ rep ct add3]] CHEST 2 VIEWS ROUTINE HISTORY: SHORTNESS OF BREATH, FOR V/Q SCAN COMPARISON: None. FINDINGS: Punctate calcified granuloma within the right lower lobe. The lungs are otherwise clear. The heart is normal in size. No pleural effusions. No pneumothorax. IMPRESSION: No acute process. CHEST CT WITHOUT CONTRAST CT DOSE: 479.33 mGy.cm HISTORY: Short of breath. Left-sided chest pain. TECHNIQUE: Multiaxial CT images of the chest were performed without contrast. COMPARISON: Chest 06/22/2016. FINDINGS: No pleural effusions. No pneumothorax. The central airways are patent. No focal lung consolidations to suggest pneumonia. Patchy ground glass densities at the lung bases favor mild dependent change. Mild fibrotic change seen within the periphery of the right middle lobe. This is likely chronic. No suspicious lytic or blastic osseous lesions. Dense calcification within the right breast may be due to old postoperative change. Left thyroid nodules with the largest measuring 1 cm. No mediastinal or hilar lymphadenopathy. Normal caliber thoracic aorta. Moderate cortical renal thinning. Mild hepatic steatosis. The visualized adrenal glands and spleen are unremarkable. IMPRESSION: 1. No acute process within the chest. 2. No fractures within the visualized osseous structures. 3. Left thyroid nodules. The largest measures 1 cm. (Lance Kiser MD) Medication Reconciliation Continued Medications: Albuterol Hfa (Ventolin Hfa) 200 Puffs/26412 Mcg Aers 2 PUFFS INH Q6H PRN for SOB/Wheezing, #1 INHALER Aspirin (Aspirin) 325 Mg Tab 325 MG PO HS Enalapril Maleate (Vasotec) 10 Mg Tab 10 MG PO DAILY, TAB Fish Oil ([place]-3) 1 Ea Cap 2000 MG PO BID, CAP Montelukast Sodium (Singulair) 10 Mg Tab 10 MG PO HS, 1 Refill Multivitamin (Multivitamin) Tab 1 TAB PO DAILY, TAB Pioglitazone (Actos) 15 Mg Tab 15 MG PO DAILY Polysaccharide Iron Complex (Nu-Iron 150) 150 Mg Cap 150 MG PO 5XWK take 1 on mon-fri 0 on sat & sun Pravastatin Sodium (Pravastatin Sodium) 40 Mg Tab 40 MG PO HS, 3 Refills Prednisone (Prednisone) 1 Mg Tab 4 MG PO DAILY, TAB Sitagliptin (Januvia) 50 Mg Tab 50 MG PO DAILY, TAB Discharge Exam Review of Systems: Constitutional: No chills, No fever, No weakness Respiratory: + dyspnea on exertion, No cough, No shortness of breath, No sputum, No wheezing Cardiovascular: No chest pain, No edema, No palpitations Abdomen: No nausea, No pain, No vomiting Genitourinary - Female: No dysuria, No urinary frequency, No urinary urgency Genitourinary - Male: No dysuria, No hematuria, No urinary frequency Neurologic: No numbness/tingling, No weakness Psychiatric: + anxiety Integumentary: No itch, No rash (Lance Kiser MD) Hospital Course 10 yo F non-smoker with Hx of Anxiety, PMR on chronic prednisone, PMR, CKD, Asthma, T2DM p/w SOBx 1 month with worsening within 2 days of arrival with associated pleuritic Chest Discomfort, palpitation, with an elevated D-Dimer from another facility,found to have negative GRAEME LE doppler u/s for DVT , negative cardiac enzymes, cxr showing granuloma, CT but no acute process. -CT Chest found Patchy ground glass densities at the lung bases. SOB -improved, saturation 96% on rm air -VQ Scan negative -Echo: mild Aortic sclerosis, no evidence of Pulmonary HTN -Troponin negative -Ruled out PE, Pneumonia, [place], Pulm HTN, Significant Valvular disease Echo confirmed mild Aortic Sclerosis -CXR:Punctate calcified granuloma within the right lower lobe. --CT Chest: Patchy ground glass densities at the lung bases -also Considered Sarcoid, Histoplasmosis -Sent out for SELENA Level, Histoplasmosis AB -DIscharged with outpatient f/u to Pulmonology Acute on CKD -Baseline 1.8-1.9 per patient - 2.2 Cr on arrival -Cr improved to 2.0 PMR -joint ache (Shoulders) at baseline - Continued Prednisone daily Systolic Murmur -known to patient -patient uncertain of diagnosis -Echo confirmed mild Aortic Sclerosis HTN -controlled -Continued Enalapril DVT Prophylaxis -Heparin 5000 q12 Total Time Spent: Less than 30 minutes This includes examination of the patient, discharge planning, medication reconciliation, and communication with other providers. (Lance Kiser MD) Discharge Instructions Please refer to the electronic Patient Visit Report (Discharge Instructions) for additional information. (Lance Kiser MD) Additional Copies To Matt Sanchez D.O. Reviewed: Pt Seen/Exam by Me (Yvonne Beckham DO) History Pt is still SOB with activity and this is unchanged since [employer]. She has no SOB at rest and does not require O2. No chest pain. Tolerating PO. Agree with HPI/ROS as noted. (Yvonne Beckham DO) General Appearance: WD/WN, no apparent distress Respiratory: normal breath sounds, no respiratory distress Cardiovascular: normal peripheral pulses, regular rate, rhythm Gastrointestinal: non tender, soft Extremities: non-tender, no pedal edema Neurologic/Psychiatric: alert, normal mood/affect, oriented x 3 Skin Characteristics: normal color, warm/dry (Yvonne Beckham DO) Assessment/Plan Resident Physician Supervision Note: I discussed the case with the resident and agree with the findings and plan as documented in the note. Any exceptions or clarifications are listed here: Documented By: Yvonne Beckham SOB with activity that has been worsening over the last month V/Q scan neg ECHO neg CXR noted for RLL punctate calcified granuloma CT chest with ground glass in bases and mild fibrotic changes in RML, L sided thyroid nodules Discussed further care with pt and . Pt has been with stable VS and no O2 needs. She is aware that there is nothing emergent to treat given current work-up and would prefer to d/c home and f/u with pulm as outpt. CM met with pt and arranged new pt appt with Dr. Tejada for later this month. Serum SELENA, histo Ag, and legionella (Yvonne Beckham, )
[2016-06-28 13:28] LABS: HISTOPLASMA AB Negative (Negative)
== END 2016-06-23 15:15 | disposition home or self-care (01) ==
LOC: ENRESERVTM → ENRESERVDT → C.EDB 22:58 → C.2E 06-22 01:27
PROVIDERS: ADMIT Internal Medicine; ATTEND Family Medicine
DX: R06.00 Dyspnea, unspecified (principal); N18.9 Chronic kidney disease, unspecified; E11.9 Type 2 diabetes mellitus without complications; Z90.710 Acquired absence of both cervix and uterus; Z83.3 Family history of diabetes mellitus; Z82.49 Family history of ischemic heart disease and other diseases of the circulatory system; Z79.82 Long term (current) use of aspirin; Z79.52 Long term (current) use of systemic steroids; Z88.2 Allergy status to sulfonamides; Z88.5 Allergy status to narcotic agent; M35.3 Polymyalgia rheumatica; I12.9 Hypertensive chronic kidney disease with stage 1 through stage 4 chronic kidney disease, or unspecified chronic kidney disease

== ENCOUNTER → 2017-05-30 | Outpatient (CLI) | payer OTHER, MEDICARE ==
[~2017-05-30] MED LIST changes: -ALBUAER INH; -ARM1 PO; +ASPI325T45 PO; -Aspirin PO; +ENAL10TA PO; -Enalapril PO; -IRON1CAP; -Januvia PO; +MULT-506 PO; -Multivitamin PO; +OMEG10007 PO; -Omega-3 PO; -PLQ200 PEG; +POLY150C PO; +PRAV40TA2 PO; +PRD/1 PO; -Pravastatin PO; -Prednisone PO; -SALI1SPR3; +SITA50TA3 PO; -Tylenol Arthritis; +VNTHFA/IN INH
--- NOTE | 2017-05-30 14:43 | DIAGNOSTIC IMAGING REPORT ---
WHOLE BODY BONE SCAN HISTORY: INVASIVE DUCTAL CARCINOMA BREAST RADIOTRACER: 25.9 mCi Tc-99m MDP STUDY/IMAGES: Planar anterior and posterior whole body imaging was performed 3 hours following the intravenous administration of radiotracer. COMPARISON: Chest CT 06/23/2016. FINDINGS: Focal areas of radiotracer uptake seen within the right stomach which is joint, shoulders, thumb bases, medial left knee, mid cervical spine facets and left foot. These are typical locations for degenerative change. No additional suspicious areas of radiotracer uptake to suggest metastatic disease. IMPRESSION: No suspicious areas of radiotracer uptake within the axial or appendicular skeleton to suggest metastatic disease. Electronically signed by: Mustapha Sargent M.D. 05/30/2017 2:42 PM Dictated Date/Time: 05/30/2017 2:35 PM
== END ==
LOC: C.NUCL 10:37
PROVIDERS: ATTEND Internal Medicine Hematology & Oncology
DX: C50.919 Malignant neoplasm of unspecified site of unspecified female breast (principal)

== ENCOUNTER → 2017-08-16 | Outpatient (CLI) | payer OTHER, MEDICARE ==
[~2017-08-16] MED LIST changes: +ASPECOTC PO; -ASPI325T45 PO
[2017-08-16 14:01] LABS: BLOOD UREA NITROGEN 44 mg/dl (7-18); CALCIUM 9.2 mg/dl (8.5-10.1); CARBON DIOXIDE 28 mmol/L (21-32); GLUCOSE 152 mg/dl (70-99); POTASSIUM 4.4 mmol/L (3.5-5.1); SODIUM 136 mmol/L (136-145)
[2017-08-16 14:02] LABS: PHOSPHORUS 2.7 mg/dl (2.5-4.9)
== END | disposition home or self-care (01) ==
LOC: C.LAB 16:36
PROVIDERS: ATTEND Internal Medicine Nephrology
DX: N18.4 Chronic kidney disease, stage 4 (severe) (principal)